=== PATIENT | female | born 1960 | race Caucasian/White ===

== ENCOUNTER 2018-08-27 02:56 | Emergency (ER) | payer BC ==
[~2018-08-27] VITALS: Ht 170.2 cm; Wt 70.3 kg
[2018-08-27 03:02] VITALS: Ht 170.2 cm; Wt 70.3 kg
[2018-08-27 04:31] VITALS: BP 136/90
[2018-08-27 04:35] LABS: UA SPECIFIC GRAVITY 1.025 (1.005-1.035); microscopic required? YES; urine erythrocyte 3+ (NEGATIVE)
== END 2018-08-27 04:31 | disposition home or self-care (01) ==
LOC: ED 02:56
PROVIDERS: Specialist
DX: N39.0 Urinary tract infection, site not specified (principal); Z87.442 Personal history of urinary calculi; Z90.710 Acquired absence of both cervix and uterus